=== PATIENT | female | born 2000 | race Caucasian/White ===

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

== ENCOUNTER 2023-11-29 07:58 | Inpatient (IN) ==
[2023-11-29] MEDS ORDERED: Lidocaine 1% VIAL 10 MG/ML 30 ML VIAL INJ PRN (09:14)
[2023-11-29] MEDS ORDERED: Lactated Ringers 1000 ml BAG 1,000 ML IV ONE ×2 (09:14→22:44)
[2023-11-29] MEDS: Buffered Lidocaine 1% SYRIN 1 ml INTRADERM ONE (09:51)
[2023-11-29] MEDS: Lactated Ringers 1000 ml BAG 1,000 ML IV SCH (10:20)
[2023-11-29] MEDS: Oxytocin in LR 20,000 MILLI.UNIT/1,000 ML BAG IV SCH (10:20)
[2023-11-29 10:23] LABS: ABS Basophils 0.1 10^3/uL (0.0-0.1); ABS Eosinophils 0.2 10^3/uL (0.0-0.5); ABS Monocytes 0.9 10^3/uL (0.0-0.9); ABS Nucleated RBC 0.01 10^3/ul; Eosinophil % 2.4 %; Hemoglobin 13.4 g/dL (11.5-14.3); Lymphocyte % 19.7 %; Mean Corpuscular Hemoglobin 31.3 pg (27-33); Mean Corpuscular Hgb Conc 34.3 g/dL (31-36); Mean Corpuscular Volume 91.1 fL (80-97); Mean Platelet Volume 11.5 fL (7.5-11.2); Nucleated Red Blood Cells % 0.1 %/100WBC (0.0-0.8); Platelet Count 146 10^3/uL (150-450); Red Blood Count 4.29 10^6/uL (3.63-4.92); Red Cell Distribution Width 13.4 % (12-17); White Blood Count 10.1 10^3/uL (3.8-11.8)
[2023-11-29 10:48] LABS: Urine Benzodiazepine Screen None Detected (None Detect); Urine Cannabinoids Screen Presumptive Positive (None Detect); Urine Opiates Screen None Detected (None Detect)
[2023-11-29] MEDS: fentaNYL 100 mcg/2 ml 50 MCG/ML VIAL IV SLOW PU ONE (20:34)
[2023-11-29] MEDS: Ondansetron 4 mg VIAL 2 MG/ML 2 ml VIAL IV PRN (21:02)
[2023-11-29] MEDS ORDERED: Lidocaine 1.5% EPI 1:200,000 30 ML SDV ONE ×2 (21:36→22:09)
[2023-11-29] MEDS ORDERED: OBEPIDURAL (200 ML) 200 ML EPIDURAL ONE (21:36)
[2023-11-29] MEDS ORDERED: Phenylephrine 40 mcg/mL 10mL (400mcg) SYRINGE ONE (21:37)
[2023-11-29] MEDS ORDERED: Phenylephrine 40 mcg/mL 10mL (400mcg) SYRINGE IV PUSH PRN ×2 (22:44)
[2023-11-29] MEDS ORDERED: Sodium Citrate/Citric Acid LIQ 15 ML UDC PO PRN (22:44)
[2023-11-29] MEDS: OBEPIDURAL (200 ML) 200 ML EPIDURAL SCH (23:00)
[2023-11-29] MEDS ORDERED: Lactated Ringers 1000 ml BAG 1,000 ML IV SCH (23:00)
[2023-11-29 23:41] LABS: Urine Appearance Clear; Urine Bilirubin Negative (Negative); Urine Blood Negative (Negative); Urine Color Light-Yellow; Urine Glucose Negative (Negative); Urine Ketones 1+ (Negative); Urine Nitrite Negative (Negative); Urine Protein 1+ (>=30 mg/dL) (Negative); Urine Specific Gravity 1.021 (1.002-1.030); Urine Urobilinogen Negative (Negative)
[2023-11-29 23:45] LABS: Urine Bacteria Absent /HPF (Absent); Urine Red Blood Cell 1+(3-5/hpf) /HPF (0-Trace); Urine White Blood Cell Trace(0-5/hpf) /HPF (0-Trace)
[2023-11-30] MEDS ORDERED: Dibucaine 1% OINT 28.35 GM TUBE PR PRN (03:56)
[2023-11-30] MEDS ORDERED: Glycerin ADULT 2.4 gm SUPP PR PRN (03:56)
[2023-11-30] MEDS ORDERED: Witch Hazel PAD JAR TOPICAL PRN (03:56)
[2023-11-30] MEDS: Oxytocin in LR 20,000 MILLI.UNIT/1,000 ML BAG IV SCH (05:49)
[2023-12-01 07:01] LABS: Hematocrit 33.1 % (35-45); Hemoglobin 11.8 g/dL (11.5-14.3); Mean Corpuscular Hemoglobin 32.9 pg (27-33); Mean Corpuscular Hgb Conc 35.7 g/dL (31-36); Mean Corpuscular Volume 92.2 fL (80-97); Red Blood Count 3.59 10^6/uL (3.63-4.92); Red Cell Distribution Width 13.2 % (12-17); White Blood Count 9.7 10^3/uL (3.8-11.8)
[2023-12-01 08:23] LABS: Mean Platelet Volume 10.8 fL (7.5-11.2); Platelet Count 131 10^3/uL (150-450)
[2023-12-01 08:24] LABS: ABS Eosinophils 0.2 10^3/uL (0.0-0.5); ABS Lymphocytes 2.5 10^3/uL (1.0-4.8); ABS Monocytes 0.9 10^3/uL (0.0-0.9); ABS Neutrophils 6.1 10^3/uL (1.5-7.6); ABS Nucleated RBC 0.01 10^3/ul; Eosinophil % 2.4 %; Lymphocyte % 25.5 %; Nucleated Red Blood Cells % 0.1 %/100WBC (0.0-0.8)
[2023-12-01 08:29] VITALS: BP 115/53
== END 2023-12-01 12:30 | disposition home or self-care (01) | DRG 560 ==
LOC: MCHOBOUT 07:58 → MCHOB 08:36